=== PATIENT | female | born 1995 | race Caucasian/White ===

== ENCOUNTER → 2017-08-10 | Outpatient (CLI) | payer MEDICAID ==
--- NOTE | 2017-08-15 11:56 | RADIOLOGY REPORT PS360 ---
US PREG COMP, . TRANSABDOMINAL AND TRANSVAGINAL Scanning Performed.: INDICATION: 20 WEEK ANATOMICAL SURVEY ORDERING PHYSICIAN: Torsten Mercado MD PATIENT AGE: 21 years TECHNIQUE: ultrasound transabdominal and transvaginal scanning.EH COMPARISON: No previous relevant studies. FINDINGS: Single viable intrauterine gestation. Cephalic position.. Placenta: Anterior placenta grade 1. Low-lying placenta extends extends to the internal os on it turns towards it.-Marginal placenta previa. Transvaginal scanning at the end of the study confirms that the Placenta does not cover the internal os but merely extends to.. Cervix is best visualized on those final transvaginal images,. It is closed & measures approximately 3.3 cm.. Adequate amount fluid.. The cervix appears closed. Complete survey performed and was unremarkable on the submitted images as in PACS. No discrete anomalies identified on survey imaging by technologist. Active fetus.Three-vessel cord. Initially question slight bulging near the cord insertion but images and discussion with technologist suggested area overall satisfactory.. Survey of brain & ventricles. In posterior fossa unremarkable . Posterior images of spine and neck appear satisfactory. Face was difficult to visualize with the occiput anterior position of head. With this face directed posteriorly into the lower uterine segment and difficult to image. Coronal image of face suggest normal appearance the orbits. Could not obtain sagittal view of the nasion & facial structures otherwise . Diaphragm and chest views unremarkable. 4-chamber heart imaged. Cine loop heart included. LVOT imaged unremarkable Abdomen: Both kidneys noted and unremarkable. Stomach noted and satisfactory. Spine: Survey of the spine satisfactory with no anomalies identified nor imaged. Both arms and legs noted. Amniotic Fluid: Adequate. Maternal adnexa: No significant findings encountered. Measurements: Average ultrasound age 22 week 0 day. Gestational Age 23 week 0 day;... Based on LMP 03/02/2017. Estimated due date by ultrasound age 312/07/2017. Estimated weight currently 490 g +/- 72 grams. BPD = 21 week 4 day OFD = 21 week 3 day HC = 20 week 5 day suspect slightly low due to measurement points . AC = 21 week 3 day FL = 24 weeks 0 day Heart Rate = 150 BPM Cerebellum = 22 weeks 2 day Humerus = 24 weeks 0 day HC/AC = 1.12.(1.09-1.26.) CI = 80%.(70-86%). FL/BPD is 83%. (71-87%) FL/AC is 26% (20-24%). IMPRESSION: 22 week 0 day average ultrasound age Low-lying anterior placenta. With Marginal placenta previa.- Transvaginal scanning performed today confirm such . Cephalic position . The occiput anterior any difficult to visualize face Otherwise no discrete findings otherwise with anatomical survey. Note comments
== END ==
LOC: RAD 07-26 13:00
DX: Z36.0 Encounter for antenatal screening for chromosomal anomalies (principal)